=== PATIENT | female | born 1940 | race Caucasian/White ===

== ENCOUNTER 2021-04-28 11:42 | Emergency (ER) | payer OTHER ==
[~2021-04-28] VITALS: Ht 162.6 cm; Wt 99.8 kg
[~2021-04-28 11:42] MED LIST: ALLO300T2 PO; APPLE CIDER VINEGAR PO; ASPI-1197 PO; CALC-1101 PO; CALC-509 PO; CLOP75TA14 PO; ESTROPIPATE PO; FE F1CAP33 PO; FISH1CAP27 PO; FLAX100020 PO; FLUO60GE TP; FOLI-103 PO; FURO40TA5 PO; GLUC-172 PO; HC130O TP; IRBE150T24 PO; LEVE750T4 PO; LEVO125T11 PO; METO50TA18 PO; MINE454C11 TP; NABU-141 PO; OM3/1CAP3 PO; OMEG-148 PO; OMEP10CA5 PO; POTA10CA44 PO; POTA10TA14 PO; PREMC VG; ROSU10TA28 PO; [UNRECOGNIZED DRUG - CODE] MC; estropipate PO
[2021-04-28 12:08] LABS: BASOPHILS % (AUTO) 0.8 % (0.0-5.0); EOSINOPHILS % (AUTO) 0.5 % (0.0-8.0); HEMATOCRIT 36.6 % (36-48); LYMPHOCYTES % (AUTO) 18.9 % (21.0-51.0); MEAN CORPUSCULAR HGB CONC 33.9 g/dL (32.0-36.0); MEAN CORPUSCULAR VOLUME 97.3 fL (79-99); MONOCYTES % (AUTO) 9.1 % (3.0-13.0); NEUTROPHILS % (AUTO) 70.2 % (40.0-77.0); PLATELET COUNT (AUTO) 149 K/uL (130-400); RED BLOOD CELL COUNT(AUTO) 3.76 MIL/uL (4.00-5.50); RED CELL DISTRIBUTION WIDTH 13.5 % (11.0-15.5); WHITE BLOOD COUNT (AUTO) 6.5 K/uL (4.8-10.8)
[2021-04-28 12:18] LABS: APPEARANCE,URINE CLEAR (CLEAR); BILIRUBIN,URINE NEGATIVE (NEGATIVE); COLOR,URINE STRAW (YELLOW); GLUCOSE, URINE (UA) NEGATIVE (NEGATIVE); KETONES,URINE NEGATIVE (NEGATIVE); LEUKOCYTE ESTERASE ,URINE NEGATIVE (NEGATIVE); NITRATE,URINE NEGATIVE (NEGATIVE); OCCULT BLOOD,URINE NEGATIVE (NEGATIVE); PROTEIN,URINE 30 mg/dL (NEGATIVE); UROBILINOGEN,URINE 0.2 mg/dL (0.2-1.0)
[2021-04-28 12:19] LABS: CREATININE 1.5 mg/dL (0.5-1.5)
[2021-04-28 12:20] LABS: INR 0.97 (0.85-1.15); PROTHROMBIN TIME 10.6 SEC (9.6-11.6)
[2021-04-28 12:22] LABS: PARTIAL THROMBOPLASTIN TIME 27.1 SEC (26.3-35.5)
[2021-04-28 12:23] LABS: ALBUMIN 3.3 g/dL (3.5-5.0); BILIRUBIN,TOTAL 0.4 mg/dL (0.2-1.0); TOTAL PROTEIN, SERUM 7.5 g/dL (6.0-8.3)
[2021-04-28] MEDS ORDERED: TRAMADOL HCL 50 MG TABLET PO ONE (12:30)
[2021-04-28] MEDS ORDERED: TRAM50TA2 PO (14:31)
[2021-04-28 14:58] VITALS: BP 165/75
== END 2021-04-28 15:00 | disposition home or self-care (01) ==
LOC: EDH 12:12
DX: M71.21 Synovial cyst of popliteal space [Baker], right knee (principal); E03.9 Hypothyroidism, unspecified; E78.00 Pure hypercholesterolemia, unspecified; I10 Essential (primary) hypertension; K21.9 Gastro-esophageal reflux disease without esophagitis; Z88.0 Allergy status to penicillin; Z88.2 Allergy status to sulfonamides; Z88.5 Allergy status to narcotic agent; Z79.1 Long term (current) use of non-steroidal anti-inflammatories (NSAID); Z79.82 Long term (current) use of aspirin; Z79.899 Other long term (current) drug therapy
CPT/HCPCS: 36415; 73562; 73590; 80053; 81003; 85025; 85610; 85730; 93926; 93971